=== PATIENT | female | born 1955 | race American Indian/Alaskan Native ===

== ENCOUNTER 2016-09-07 06:11 | Day surgery (SDC) | payer OTHER ==
[2016-09-07] MEDS ORDERED: NACL 0.9% 500 ML 500 ML IV SCH (07:00)
[2016-09-07 07:15] LABS: Basophils % (Auto) 1.4 % (0.0-1.8); Eosinophils % (Auto) 5.8 % (0.0-4.3); Hematocrit 33.1 % (30.3-42.9); Hemoglobin 10.5 gm/dl (10.1-14.3); Mean Corpuscular HGB Conc 32 % (30-34); Mean Corpuscular Hemoglobin 27 pg (28-32); Mean Corpuscular Volume 86 fl (79-97); Platelet Count 179 K/mm3 (140-440); Red Blood Count 3.86 M/mm3 (3.65-5.03); Red Cell Distribution Width 15.8 % (13.2-15.2); White Blood Count 3.5 K/mm3 (4.5-11.0)
[2016-09-07 07:31] LABS: BUN/Creatinine Ratio 22.3; Calcium 9.3 mg/dL (8.4-10.2); Chloride 106.3 mmol/L (98-107); Potassium 4.4 mmol/L (3.6-5.0)
[2016-09-07] MEDS ORDERED: NITROGLYCERIN SYRINGE 3 ML ONE (08:52)
[2016-09-07] MEDS: HEPARIN 10,000 UNITS/10 ML ONE ×2 (09:02→10:18)
[2016-09-07] MEDS: SUBLIMAZE ONE ×2 (09:03→10:12)
[2016-09-07] MEDS: VERSED ONE ×2 (09:03→10:12)
[2016-09-07] MEDS: XYLOCAINE 2% INFILTRATI ONE ×2 (09:03→10:18)
[2016-09-07] MEDS: HEPARIN/NS 5000 UNIT/500ML(CATH LAB) 1,000 ML IR ONE ×2 (09:04→10:18)
[2016-09-07] MEDS ORDERED: CALAN ONE (09:56)
[2016-09-07] MEDS ORDERED: ULTRAM PO PRN (10:50)
--- NOTE | 2016-09-07 10:55 | Discharge Summary ---
Short Stay Discharge Plan Activity: advance as tolerated Weight Bearing Status: Full Weight Bearing Diet: low fat, low cholesterol, low salt, diabetic Wound: keep clean and dry Special Instructions: no heavy lifting (3 days), hold Metformin (48hrs) Follow up with: BENNY GODDARD MD [Primary Care Provider] - 7 Days LARS AGUILERA MD [Staff Physician] - 7 Days Forms: [employer] PCI D/C Instructions
[2016-09-07] MEDS ORDERED: NACL 0.9% 1000 ML 1,000 ML IV SCH (11:00)
--- NOTE | 2016-09-07 11:03 | Cardiac Catherization Report ---
REASON FOR PROCEDURE: Abnormal thallium stress test. PROCEDURE IN DETAIL: The patient was prepped and draped in a sterile fashion after informed consent. The right radial artery was entered using the Seldinger technique followed by placement of a 5-Thai hydrophilic sheath. Routine radial cocktail was administered via the sheath. A #3.5 left Sejal catheter was used for left coronary angiography. A #4 right Sejal was used for right coronary angiography. A pigtail catheter was used for left ventricle angiography. The catheters were removed, sheath removed, and hemostasis achieved using manual compression. The patient was returned to the postprocedure unit in stable condition. There were no complications. FINDINGS: HEMODYNAMICS: Left ventricle end-diastolic pressure was 10. Ascending aortic pressure was 175/85. There was no significant pressure gradient on pullback across the aortic valve. CHOLANGIOGRAPHY: The left main coronary artery was short, and otherwise angiographically normal. The left anterior descending artery and its diagonal branches were angiographically normal. The circumflex artery and its obtuse marginal branches were angiographically normal. The right coronary artery was dominant and similarly angiographically normal. Left ventricular systolic function appeared at the lower limits of normal, estimated ejection fraction 45-50%. There was poor visualization of the left ventricular chamber due to poor opacification during contrast injection. CONCLUSION: 1. Angiographically normal coronary arteries. 2. Left ventricular systolic function appears at lower limits of normal, ejection fraction estimated at 45-50%. RECOMMENDATION: Risk factor modification and medical therapy, echocardiography for reassessment of left ventricular systolic function. JOB# [id number] CA/NTS
[2016-09-07 15:15] VITALS: BP 124/64
== END 2016-09-07 06:12 | disposition home or self-care (01) ==
LOC: OPU 06:11
PROVIDERS: ATTEND Internal Medicine Cardiovascular Disease
DX: R94.39 Abnormal result of other cardiovascular function study (principal); M13.88 Other specified arthritis, other site; E11.9 Type 2 diabetes mellitus without complications; E78.5 Hyperlipidemia, unspecified; I10 Essential (primary) hypertension; E66.01 Morbid (severe) obesity due to excess calories; Z68.43 Body mass index [BMI] 50.0-59.9, adult; Z72.89 Other problems related to lifestyle; Z82.49 Family history of ischemic heart disease and other diseases of the circulatory system
CPT/HCPCS: 36415; 80048; 82962; 85025; 85610; 85730; 93005; 93010; 93458; C1894; J1644; J2250; J3010; J7040; Q9967

== ENCOUNTER 2018-03-13 17:26 | Emergency (ER) | payer MEDICARE, OTHER ==
[2018-03-13 17:38] VITALS: BP 154/97
[2018-03-13] MEDS ORDERED: TYLENOL #3 PO ONE (18:57)
--- NOTE | 2018-03-13 21:07 | Emergency Department Report ---
ED Lower Extremity HPI - General Chief Complaint: Extremity Injury, Lower Stated Complaint: BOTH KNEES/PAIN Time Seen by Provider: 03/13/18 18:52 Source: patient Mode of arrival: Ambulatory Limitations: No Limitations - History of Present Illness Initial Comments: This is a 62-year-old female nontoxic, well nourished in appearance, no acute signs of distress presents to the ED with c/o of acute on chronic right knee/ calf pain 1 week. Patient stated she injured her knee 10 years ago and sees an orthopedic and stated needs surgery to replace knee. Patient denies any new trauma. Patient denies any numbness, tingling, fever, chills, nausea, vomiting , chest pain, shortness of breath, headache, stiff neck. Patient denies any joint swelling or joint redness. Patient denies decreased range of motion. Patient stated has decreased gait due to pain. Patient stated allergies to amlodipine, aspirin and lisinopril. Past medical history includes arthritis, diabetes and hypertension. MD Complaint: knee injury, other (thigh pain) -: week(s) (1) Injury: Knee: Right Severity: mild Severity scale (0 -10): 8 Improves With: immobilization Worsens With: weight bearing, movement, palpation Associated Symptoms: swelling, able to partially bear weight, ambulatory. denies: snap/pop sensation, numbness, tingling, unable to bear weight - Related Data Home Medications Medication Instructions Recorded Confirmed Last Taken Clonidine HCl 0.3 mg PO BID 09/07/16 09/07/16 09/07/16 05:00 Losartan [Cozaar] 100 mg PO QDAY 09/07/16 09/07/16 09/04/16 Metoprolol [Lopressor TAB] 25 mg PO QDAY 09/07/16 09/07/16 09/07/16 05:00 NovoLIN 70/30 15 units SC QPM 09/07/16 09/07/16 09/06/16 NovoLIN 70/30 25 mg SC QAM 09/07/16 09/07/16 09/06/16 Potassium Chloride 20 meq PO QDAY 09/07/16 09/07/16 09/06/16 Simvastatin 40 mg PO QDAY 09/07/16 09/07/16 09/06/16 Spironolactone Tab [Aldactone Tab] 12.5 mg PO QDAY 09/07/16 09/07/16 09/04/16 Triamter/Hctz 37.5-25 mg 1 tab PO QDAY 09/07/16 09/07/16 09/04/16 Previous Rx's Medication Instructions Recorded Last Taken Type Acetaminophen/Codeine [Tylenol 1 tab PO Q6H PRN #12 tab 03/13/18 Unknown Rx /Codeine # 3 tab] Allergies Allergy/AdvReac Type Severity Reaction Status Date / Time amlodipine AdvReac SWELLING Verified 03/13/18 17:36 OF THE BODY aspirin AdvReac UPSET Verified 03/13/18 17:36 STOMACH lisinopril AdvReac BAD COUGH Verified 03/13/18 17:36 ED Review of Systems ROS: Stated complaint: BOTH KNEES/PAIN Other details as noted in HPI Constitutional: denies: chills, fever Eyes: denies: eye pain, eye discharge, vision change ENT: denies: ear pain, throat pain Respiratory: denies: cough, shortness of breath, wheezing Cardiovascular: denies: chest pain, palpitations Endocrine: no symptoms reported Gastrointestinal: denies: abdominal pain, nausea, diarrhea Genitourinary: denies: urgency, dysuria, discharge Musculoskeletal: arthralgia. denies: back pain, joint swelling Skin: denies: rash, lesions Neurological: denies: headache, weakness, paresthesias Psychiatric: denies: anxiety, depression Hematological/Lymphatic: denies: easy bleeding, easy bruising ED Past Medical Hx - Past Medical History Hx Hypertension: Yes Hx Diabetes: Yes Hx Arthritis: Yes (generalized) Hx HIV: No - Surgical History Additional Surgical History: Right shoulder - Social History Smoking Status: Never Smoker Substance Use Type: None - Medications Home Medications: Home Medications Medication Instructions Recorded Confirmed Last Taken Type Clonidine HCl 0.3 mg PO BID 09/07/16 09/07/16 09/07/16 05:00 History Losartan [Cozaar] 100 mg PO QDAY 09/07/16 09/07/16 09/04/16 History Metoprolol [Lopressor TAB] 25 mg PO QDAY 09/07/16 09/07/16 09/07/16 05:00 History NovoLIN 70/30 15 units SC QPM 09/07/16 09/07/16 09/06/16 History NovoLIN 70/30 25 mg SC QAM 09/07/16 09/07/16 09/06/16 History Potassium Chloride 20 meq PO QDAY 09/07/16 09/07/16 09/06/16 History Simvastatin 40 mg PO QDAY 09/07/16 09/07/16 09/06/16 History Spironolactone Tab [Aldactone Tab] 12.5 mg PO QDAY 09/07/16 09/07/16 09/04/16 History Triamter/Hctz 37.5-25 mg 1 tab PO QDAY 09/07/16 09/07/16 09/04/16 History Acetaminophen/Codeine [Tylenol 1 tab PO Q6H PRN #12 tab 03/13/18 Unknown Rx /Codeine # 3 tab] ED Physical Exam - General Limitations: No Limitations General appearance: alert, in no apparent distress - Head Head exam: Present: atraumatic, normocephalic - Eye Eye exam: Present: normal appearance Pupils: Present: normal accommodation - ENT ENT exam: Present: normal exam, mucous membranes moist - Neck Neck exam: Present: normal inspection, full ROM. Absent: tenderness, meningismus, lymphadenopathy - Respiratory Respiratory exam: Present: normal lung sounds bilaterally. Absent: respiratory distress, wheezes, rales, rhonchi, stridor, chest wall tenderness, accessory muscle use, decreased breath sounds, prolonged expiratory - Cardiovascular Cardiovascular Exam: Present: regular rate, normal rhythm, normal heart sounds. Absent: bradycardia, tachycardia, irregular rhythm, systolic murmur, diastolic murmur, rubs, gallop - GI/Abdominal GI/Abdominal exam: Present: soft, normal bowel sounds - Extremities Exam Extremities exam: Present: normal inspection, full ROM, tenderness, normal capillary refill, calf tenderness. Absent: joint swelling - Expanded Lower Extremity Exam Right Hip exam: Present: normal inspection, full ROM. Absent: tenderness, swelling Upper Leg exam: Present: normal inspection, full ROM. Absent: tenderness, swelling Knee exam: Present: normal inspection, full ROM, tenderness, swelling, full knee extension. Absent: abrasion, laceration, deformity, crepidus, dislocation , erythema, effusion, pain w/ pronation/supination, posterior draw sign, pain/ laxity with valgus, pain/laxity with varus Lower Leg exam: Present: normal inspection, full ROM, tenderness. Absent: swelling, abrasion, laceration, ecchymosis, crepidus, dislocation, erythema, palpable cord, Mingo's sign Ankle exam: Present: normal inspection, full ROM. Absent: tenderness, swelling Foot/Toe exam: Present: normal inspection, full ROM. Absent: tenderness, swelling Neuro vascular tendon exam: Present: no vascular compromise. Absent: pulse deficit, abnormal cap refill, motor deficit, sensory deficit, tendon deficit, extremity cold to touch, pallor, abnormal 2-point discrimination, decreased fine /light touch, foot drop, peroneal nerve deficit, significant pain with passive ROM of distal joint Gait: Positive: observed and limited by pain - Back Exam Back exam: Present: normal inspection, full ROM - Neurological Exam Neurological exam: Present: alert, oriented X3, normal gait - Psychiatric Psychiatric exam: Present: normal affect, normal mood - Skin Skin exam: Present: warm, dry, intact, normal color. Absent: rash ED Course Vital Signs 03/13/18 03/13/18 03/13/18 17:36 19:06 20:13 Temperature 99.8 F H Pulse Rate 84 Respiratory 20 16 15 Rate Blood Pressure 154/97 O2 Sat by Pulse 99 Oximetry - Reevaluation(s) Reevaluation #1: 03/13/18 21:19 Patient is speaking in full sentences with no signs of distress noted. ED Lower Extremity MDM - Medical Decision Making This is a 62-year-old female that presents with right calf pain and right knee strain. Patient is stable and was examined by me. I referred patient to an orthopedic doctor for further evaluation for possible MRI. X-ray has been obtained and dictated by the radiologist. Patient is notified of the x-ray report with noted by the patient. Arron elevated. Unable to perform doppler due to no tech availbale until tomorrow morning. Patient was discussed with Dr. Balderrama and agrees to the ED plan of care and discharge instructions. Patient received 20 mg of Xarelto in the ED. Patient was observed for 2 hours for peek of the medication and patient was asymptomatic. Patient denies ANY chest pain or shortness of breathe. Patient was given strict precautions to return to the emergency room tomorrow morning at 8 AM for a Doppler ultrasound study to rule out DVT/SVT. And if positive she was instructed to sign back to emergency room to see a provider again for further treatment and examinations. Patient does have normal gait with no tenderness and no joint swelling. No ecchymosis. no joint redness or swelling. Not warm to touch. No signs of cellulites present. Patient discharged with a walker. Patient received Motrin for pain. Patient is discharged with Motrin. At time of discharge, the patient does not seem toxic or ill in appearance. No acute signs of distress noted. Patient agrees to discharge treatment plan of care. No further questions noted by the patient. Critical care attestation.: If time is entered above; I have spent that time in minutes in the direct care of this critically ill patient, excluding procedure time. ED Disposition Clinical Impression: Right calf pain Strain of right knee Qualifiers: Encounter type: initial encounter Qualified Code(s): S86.911A - Strain of unspecified muscle(s) and tendon(s) at lower leg level, right leg, initial encounter Disposition: TO HOME OR SELFCARE Is pt being admited?: No Does the pt Need Aspirin: No Condition: Stable Instructions: Deep Venous Thrombosis (ED), Knee Pain (ED) Additional Instructions: As instructed and educated to you in the emergency room today, it is crucial that you return tomorrow at 8 AM to the radiological/vascular lab department for a Doppler of right leg to rule out deep vein thrombosis. If positive, you have to sign back in to the emergency room for further evaluation/treatment. Follow-up with a primary care doctor in 3-5 days or if symptoms worsen and continue return to emergency room as soon as possible. Prescriptions: Acetaminophen/Codeine [Tylenol /Codeine # 3 tab] 1 tab PO Q6H PRN #12 tab PRN Reason: Pain , Severe (7-10) Referrals: PRIMARY MD ANA [Primary Care Provider] - 3-5 Days BECKA CHAVIRA MD [Staff Physician] - 3-5 Days [facility] [Outside] - 3-5 Days [facility] [Outside] - 3-5 Days Forms: Work/School Release Form(ED)
[2018-03-13] MEDS ORDERED: XARELTO PO ONE (21:08)
--- NOTE | 2018-03-13 21:46 | XRay Report ---
FINAL REPORT EXAM: XR KNEE 3V RT HISTORY: knee pain pain for 6 days, no recent injury TECHNIQUE: Three views left knee Comparison: None FINDINGS: Global osteopenia. Advanced tricompartmental osteoarthritic change with moderate to large suprapatellar bursal effusion. Cross-table lateral does not demonstrate a fat fluid level. Lateral tibial plateau sclerosis with ill-defined lucency which may be related to the degenerative change versus a lateral tibial plateau fracture. Advanced subchondral cyst formation. Lateral compartment bone on bone with valgus appearance. IMPRESSION: Advanced tricompartmental osteoarthritis. Moderate to large suprapatellar bursal effusion. Sclerotic lateral tibial plateau with ill-defined lucency, question superimposed subtle lateral tibial plateau fracture. Recommend correlation with MRI.
== END 2018-03-13 21:40 | disposition home or self-care (01) ==
LOC: ED 17:26
DX: S86.911A Strain of unspecified muscle(s) and tendon(s) at lower leg level, right leg, initial encounter (principal); I10 Essential (primary) hypertension; E11.9 Type 2 diabetes mellitus without complications; M19.90 Unspecified osteoarthritis, unspecified site; Z88.6 Allergy status to analgesic agent; X58.XXXA Exposure to other specified factors, initial encounter; Y93.89 Activity, other specified; Y92.89 Other specified places as the place of occurrence of the external cause; Y99.8 Other external cause status
CPT/HCPCS: 36415; 85379; 99283

== ENCOUNTER → 2018-03-14 | Outpatient (CLI) | payer MEDICARE ==
--- NOTE | 2018-03-17 09:00 | Vascular Lab Report ---
Right Lower Extremity Venous Duplex Study: Reason for Exam: Pain and swelling of the right lower extremity. Comments on the Right: All veins visualized are freely compressible without evidence of internal echogenicity. Flow is spontaneous and phasic throughout. No evidence of acute or chronic thrombus is seen in any of the vessels visualized. A soft tissue change in the right knee area is consistent with a Aguilar's cyst. Comments on the Left: A limited duplex study was done of the proximal veins of the left lower extremity. All veins visualized are freely compressible without evidence of internal echogenicity. Flow is spontaneous and phasic throughout. No evidence of acute or chronic thrombus is seen in any of the vessels visualized. Impression: No evidence of acute or chronic deep venous thrombosis in the right lower extremity. A soft tissue change in the right knee area is consistent with a Aguilar's cyst.
== END | disposition home or self-care (01) ==
LOC: VAS 10:13
PROVIDERS: ATTEND Registered Nurse
DX: R22.41 Localized swelling, mass and lump, right lower limb (principal); Z88.8 Allergy status to other drugs, medicaments and biological substances; Z88.6 Allergy status to analgesic agent

== ENCOUNTER 2018-10-02 11:00 | Outpatient (CLI) | payer MEDICARE | END 2018-10-02 11:01 | disposition home or self-care (01) | LOC: SLR 11:00 | PROVIDERS: ATTEND Otolaryngology | DX: G47.33 Obstructive sleep apnea (adult) (pediatric) (principal); R40.0 Somnolence; R06.83 Snoring; E78.00 Pure hypercholesterolemia, unspecified; I10 Essential (primary) hypertension | CPT/HCPCS: G0399 ==